=== PATIENT | female | born 1965 | race Caucasian/White ===

== ENCOUNTER → 2016-06-26 | Outpatient (CLI) | payer OTHER ==
--- NOTE | 2016-06-26 13:05 | MA ---
Diagnostic Bilateral Digital Mammogram History: Left nipple pain Breast parenchymal density: C. Technique: Four digital views of each breast are obtained including CC and oblique lateral Vel (im plant displaced) and non-Vle (implant not displaced) views. A CC small compression, spot film was performed over the left nipple in profile. CAD is utilized using the [employer] product. Comparison: July 2015, July 2014, May 2013 and April 2012 and 2010. Findings: Bilateral breast implants are in place. No suspicious areas are identified. The mammogram i s stable. Impression: Negative mammogram. We will proceed to ultrasound to evaluate the painful retroareolar le ft nipple.. BI-RADS : 0- additional imaging with ultrasound of the painful area. [facility] will send final result letter to the patient, after today's encounter. Negative mammography should not preclude additional workup of a clinically suspicious finding. The patient's information is entered into a reminder system with a target due date for her next mammo gram.
--- NOTE | 2016-06-26 13:26 | US ---
Left Breast Ultrasound History: Nipple pain Technique: I first performed a directed physical examination. This was followed by ultrasound exam with a high frequency linear transducer. Findings: Is a clinical examination of the nipple areola and retroareolar breast is negative. Ultraso und of these areas is also negative. There is no significant cysts, solid abnormality or sonographic architectural distortion. Note nipple discharge occurred during the examination. Impression: Negative physical examination, diagnostic mammogram and sonogram. No source for nipple pa in identified. Recommendation: The patient's breast pain should be managed clinically. Screening mammography is arnol mmended in one year. If the patient's symptoms progress, then follow-up imaging could be performed, a s clinically directed. Results and recommendation were discussed with the patient in detail, who is in agreement with the pl an. BI-RADS 1. Negative imaging.
== END ==
LOC: BMCIMAGING 12:09
PROVIDERS: ATTEND Internal Medicine
DX: N64.4 Mastodynia (principal)
CPT/HCPCS: G0204

== ENCOUNTER → 2016-07-18 | Outpatient (CLI) | payer OTHER | LOC: BMCIMAGING 10:45 | PROVIDERS: ATTEND Obstetrics & Gynecology Gynecology | DX: D25.9 Leiomyoma of uterus, unspecified (principal) ==

== ENCOUNTER → 2017-07-19 | Outpatient (CLI) | payer OTHER | LOC: FIMAGING 14:04 | PROVIDERS: ATTEND Internal Medicine | DX: Z12.31 Encounter for screening mammogram for malignant neoplasm of breast (principal); Z80.3 Family history of malignant neoplasm of breast ==

== ENCOUNTER → 2018-09-18 | Outpatient (CLI) | payer OTHER | LOC: FIMAGING 15:50 | PROVIDERS: ATTEND Obstetrics & Gynecology | DX: Z12.31 Encounter for screening mammogram for malignant neoplasm of breast (principal) ==